=== PATIENT | male | born 1960 | race Caucasian/White ===

== ENCOUNTER 2025-05-23 14:59 | Inpatient (IN) | payer OTHER, MEDICARE ==
[2025-05-23] VITALS (7 sets, daily range): BP systolic 124–167; BP diastolic 47–58; PULSE 59–76; RESP 14–22; TEMP 98.3–98.8; O2SAT 98–100
[~2025-05-23] VITALS: Ht 180.3 cm; Wt 85.6 kg
[~2025-05-23 14:59] MED LIST: ASPI-1071 PO; ATOR20TA66 PO; CLOP75TA34 PO; FOLI1TAB27 PO; LISI10TA27 PO; NO HOME MEDS; NOR5T PO; THIA50TA10 PO
--- NOTE | 2025-05-23 15:32 | Physician Documentation ---
History of Present Illness General Chief Complaint: Abnormal Lab(s) Stated Complaint: ABNORMAL LABS Time Seen by MD: 15:32 OK to notify your PCP?: No Primary Medical Doctor: none Source: patient, family, RN notes reviewed Mode of Arrival: POV Exam Limitations: no limitations History of Present Illness Initial Comments 65-year-old male, with history of atrial fibrillation on Plavix, cardioembolic stroke, cardiomyopathy, coronary artery disease, and high cholesterol, sent to the ED by the [place] [facility] due to concerns of a hemoglobin of 6.2, base off of labs drawn today at 1213. Patient denies known history of anemia, but has been increasingly short of breath recently. He also describes some dark colored stools over the last couple of months. Medication Reconciliation Allergies: Coded Allergies: No Known Allergies (Unverified , 07/12/23) Scheduled Amiodarone HCl (Pacerone), 1 TAB PO DAILY, (Reported) Atorvastatin Calcium (Atorvastatin Calcium), 20 MG PO DAILY Cadexomer Iodine (Iodosorb), 1 APPLIC TOP DAILY, (Reported) Colchicine (Colchicine), 1 CAP PO DAILY, (Reported) Docusate Sodium (Docusate Sodium), 1 CAP PO Q12H, (Reported) Duloxetine HCl (Duloxetine HCl), 1 CAP PO DAILY, (Reported) Folic Acid* (Folic Acid*), 1 MG PO DAILY Folic Acid* (Folic Acid*), 1 TAB PO DAILY, (Reported) Gabapentin (Gabapentin), 1 CAP PO Q8H, (Reported) Hydroxyzine Hcl* (Atarax*), 1 TAB PO Q12H, (Reported) Lisinopril (Lisinopril), 10 MG PO DAILY Metoprolol/Hydrochlorothiazide 100/50 MG* (Lopressor Hct 100/50 MG*), 1 TAB PO DAILY, (Reported) Tamsulosin Hcl* (Flomax*), 1 CAP PO DAILY, (Reported) Scheduled PRN Albuterol Sulfate Nebs* (Proventil Nebs*), 2.5 MG IH Q4H PRN for SOB or wheezing, (Reported) Miscellaneous Medications Home Med List (No Home Medications), (Reported) Naloxone HCl (Naloxone HCl), (Reported) Thiamine Mononitrate (Vitamin B-1), 100 MG PO, (Reported) Discontinued Medications Amlodipine Besylate (Amlodipine Besylate), 5 MG PO DAILY Discontinued Reason: patient no longer taking Aspirin (Ecotrin*), 1 TAB PO DAILY Discontinued Reason: patient no longer taking Clopidogrel Bisulfate (Clopidogrel), 75 MG PO DAILY Discontinued Reason: patient no longer taking Thiamine HCl (Vitamin B-1), 2 TAB PO DAILY Discontinued Reason: patient no longer taking Past Medical History Past Medical History: CVA/TIA/Stroke, Atrial Fibrillation, Coronary Artery Disease, High Cholesterol, COPD, *MUSCULOSKELETAL*, MRSA Abscess Past Surgical History: orthopedic surgeries Drug Use: none Lives In: Home Review of Systems All Other Systems at this time: Reviewed and Negative ROS Shortness of breath as well as other positive symptoms as stated above in the HPI, otherwise all systems are reviewed and negative. Physical Exam Physical Exam Vital Signs: RN Vital Signs have been reviewed: Yes, Temperature: 97.6, Source: Oral, Heart Rate: 66, Respiratory Rate: 24, BP: 124/48, Pulse Oximetry: 100, Weight: 85.600 Oxygen Flow Rate: 0 Pulse Oximetry Reflects: adequate oxygenation Physical Exam VITALS: Reviewed and as above. GENERAL: Alert, mild distress. HEENT: Normocephalic, atraumatic, PERRL, EOMI, dry mucosa RESPIRATORY: He has wheezing bilaterally. Mild respiratory distress. No tachypnea. CHEST: No accessory muscle use, no retractions CV: Regular rate, rhythm, no edema, no murmur, No: JVD GI: Soft, non-tender, bowels sounds present, no rebound, guarding, or rigidity Rectal: Normal rectal tone. No stool in the vault, mucus was guaiac negative. MUSCULOSKELETAL: No deformities, no edema SKIN: Right anterior castrejon ulcer measuring 10 cm x 3.5 cm, no surrounding erythema. Warm and dry, no rash NEURO: Oriented x4, No motor or sensory deficit PSYCH: Normal mood and affect, no agitation Progress Progress Note 1707: Hospitalist paged. [id number]: Admission orders placed by Dr. Oliver, internal medicine resident. Results/Orders Reviewed/noted all lab results: Yes Results/Orders Orders - LEIF ORR MD Type And Screen (05/23/25 15:34) Transfusion Informed Consent (05/23/25 15:34) Svn Treatment (05/23/25 ) Lrpc - No Active Bleeding (05/23/25 16:21) Chest,Single View (05/23/25 16:57) Page Hospitalist (05/23/25 17:07) Fill Out Med Reconciliation (05/23/25 17:07) Lrpc - Active Bleeding (05/23/25 15:37) Completed Orders - OHLLEIF BRAND MD Cbc/Diff (05/23/25 15:21) BMP (05/23/25 15:21) Lipase (05/23/25 15:21) CMP (05/23/25 15:21) Hs Troponin I W Calculations (05/23/25 15:54) PBNP (05/23/25 15:54) Stat Ekg (05/23/25 ) Ipratropium/Albuterol Nebule (Ipratrop/A (05/23/25 16:10) Transfusion Informed Consent (05/23/25 16:21) Pathology Review (05/23/25 15:37) Chest,Single View (05/23/25 16:57) Hgb A1c (05/23/25 15:37) Man Diff (05/23/25 15:37) Vital Signs 05/23/25 05/23/25 05/23/25 05/23/25 15:16 15:48 16:15 16:34 Temp 97.6 Pulse 66 59 59 Resp 24 18 16 B/P (MAP) 124/48 128/67 (87) Pulse Ox 100 100 100 O2 Delivery Room Air* O2 Flow Rate 0 0 0 FiO2 21 05/23/25 05/23/25 16:34 17:15 Pulse 61 120 Resp 16 18 B/P (MAP) 128/90 (103) Pulse Ox 100 98 O2 Delivery Room Air* O2 Flow Rate 0 0 FiO2 21 Laboratory Tests Test 05/23/25 15:37 White Blood Count 7.2 Red Blood Count 3.03 L Hemoglobin 5.9 *L Hematocrit 19.8 *L Mean Corpuscular Volume 65.4 L Mean Corpuscular Hemoglobin 19.3 L Mean Corpuscular Hemoglobin Concent 29.5 L Red Cell Distribution Width 21.0 H Platelet Count 248 Mean Platelet Volume 8.4 Neutrophils (%) (Auto) 65.5 Lymphocytes (%) (Auto) 20.3 L Monocytes (%) (Auto) 8.8 Eosinophils (%) (Auto) 4.8 Basophils (%) (Auto) 0.6 Neutrophils # (Auto) 4.7 Lymphocytes # (Auto) 1.5 Monocytes # (Auto) 0.6 Eosinophils # (Auto) 0.3 Basophils # (Auto) 0.0 CBC Comment Differential Total Cells Counted 100 Neutrophils % (Manual) 72.0 Lymphocytes % (Manual) 13.0 L Monocytes % (Manual) 8.0 Eosinophils % (Manual) 7.0 H Platelet Estimate Normal Red Blood Cell Morphology Perf Polychromasia Few Hypochromasia 1+ Basophilic Stippling Anisocytosis 3+ Microcytosis 2+ Hematology Pathologist Comment See note Sodium Level 139 Potassium Level 4.3 Chloride Level 104 Carbon Dioxide Level 28.6 Anion Gap 6 L Blood Urea Nitrogen 13 Creatinine 1.56 H Estimated GFR/1.73 m2 45 BUN/Creatinine Ratio 8.3 L Glucose Level 107 H Hemoglobin A1c 5.7 Lactic Acid Level 1.5 Calcium Level 8.0 L Total Bilirubin 0.4 Aspartate Amino Transf (AST/SGOT) 12 Alanine Aminotransferase (ALT/SGPT) 11 L Alkaline Phosphatase 84 Troponin I High Sensitivity 14 Pro-B-Type Natriuretic Peptide 732 H Total Protein 7.0 Albumin 3.2 L Globulin 3.8 Albumin/Globulin Ratio 0.8 L Lipase 40 Chemistry Comments EKG/XRAY/CT/US/VASC/MRI Chest X-Ray : Additional Comments EXAM: DI CHEST,SINGLE VIEW HISTORY: sob COMPARISON: DI CHEST,SINGLE VIEW on DOS: 07/12/23 TECHNIQUE: Portable upright AP view of the chest was performed. FINDINGS: No pneumothorax, consolidative infiltrates, or pulmonary edema. The heart is enlarged. There are postoperative changes of median sternotomy, new compared wit h prior chest x-ray. IMPRESSION: 1. No acute intrathoracic process. 2. Cardiomegaly and postoperative changes of the heart. Reviewed by myself. Medical Decision Making Additional information obtaine: old records Findings The patient is a 65-year-old male with known renal failure who presents with symptomatic anemia patient was sent in for evaluation of his iron deficiency the patient was found to be significant and a we anemic, his prior hospitalizations has been reviewed. The patient's case was discussed with the nephrology doctor. As well as the hospitalist. The patient will be admitted to the hospitalist. The patient is a labs were reviewed previous hospitalizations were reviewed the patient has been typed and crossed for potential transfusion the patient's iron studies has been ordered. There was no current evidence of cardiac ischemia the patient has remained hemodynamically stable. The patient's cardiac cath tech was interpreted as a sinus rhythm and the patient's pulse oximetry was interpreted as normal and adequate. Differential Diagnosis Iron deficiency anemia anemia of chronic disease Departure Time of Disposition: 17:07 Disposition: ADMITTED INPATIENT Admitted to Inpatient Unit: yes, to hospitalist Impression: Primary Impression: Symptomatic anemia Additional Impression: COPD exacerbation Condition: Guarded Signature Scribe Signature: Scribed for Leif Orr MD by Landon Calhoun . 05/23/25 15:49 Attestation: The note accurately reflects work and decisions made by me.Leif Orr MD 15:50 LEIF ORR MD May 23, 2025 15:32 LANDON HANLEY May 23, 2025 15:55
[2025-05-23 15:51] LABS: MEAN PLATELET VOLUME 8.4 FL (7.4-10.4); RED CELL DISTRIBUTION WIDTH 21.0 % (11.5-14.5)
[2025-05-23 15:59] LABS: CREATININE 1.56 MG/DL (0.60-1.10); TOTAL CARBON DIOXIDE 28.6 MMOL/L (24-32); eCRCL 49 ML/MIN; eGFR 45 ML/MIN
--- NOTE | 2025-05-23 16:20 | ELECTROCARDIOGRAPH REPORT ---
[facility] Test Date: 2025-05-23 Test Time: 16:16:44 Pat Name: DIEGO TOTH Department: [facility]- Patient ID: [facility]-[id number] Room: ORTHO [facility] Gender: M Sr. Payroll Processor: : 1960 Requested By: LEIF SALAZAR Order Number: [id number] Reading MD: Dr. Walt Saldivar Measurements Intervals [place] Rate: 60 P: 72 [place]: 188 QRS: 99 QRSD: 156 T: -57 QT: 504 QTc: 504 Interpretive Statements Sinus rhythm Nonspecific intraventricular conduction delay Repol abnrm suggests ischemia, diffuse leads Baseline wander in lead(s) III,aVL,V3 Electronically Signed On 05-27-2025 7:42:[address] Walt Saldivar Please click the below link to view image of tracing.
[2025-05-23] MEDS: ipratropium/albuterol 3ml nebule NEB ONE (16:34)
[2025-05-23 16:44] LABS: PLATELET ESTIMATE NORMAL
--- NOTE | 2025-05-23 17:08 | RADIOLOGY REPORT ---
EXAM: DI CHEST,SINGLE VIEW HISTORY: sob COMPARISON: DI CHEST,SINGLE VIEW on DOS: 07/12/23 TECHNIQUE: Portable upright AP view of the chest was performed. FINDINGS: No pneumothorax, consolidative infiltrates, or pulmonary edema. The heart is enlarged. There are postoperative changes of median sternotomy, new compared with prior chest x-ray. IMPRESSION: 1. No acute intrathoracic process. 2. Cardiomegaly and postoperative changes of the heart.
[2025-05-23] MEDS ORDERED: magnesium sulf-water 4G/100mL 100 ML IV PRN (18:10)
[2025-05-23] MEDS ORDERED: potassium Cl 40MEQ/1/2NS 520ml 520 ML IV PRN (18:10)
[2025-05-23] MEDS ORDERED: mag hydrox/Alum hydrox/simeth 30ml oral suspension PO PRN (18:10)
[2025-05-23] MEDS ORDERED: magnesium hydroxide 30ml (MOM) UD suspension PO PRN (18:10)
[2025-05-23] MEDS ORDERED: magnesium Cl slow-release 64mg tablet PO PRN (18:10)
[2025-05-23] MEDS ORDERED: magnesium sulf-water 2g/50mL 50 ML IV PRN (18:10)
[2025-05-23] MEDS ORDERED: potassium Cl 20 mEq SR tablet PO PRN ×2 (18:10)
[2025-05-23] MEDS ORDERED: ondansetron/PF 4mg/2ml inj IV PRN (18:10)
[2025-05-23] MEDS: PERFLUTREN PROTEIN-A MICROSPHR (Optison) 0.22 MG/ML 3ML VIAL IV ONE (18:22)
[2025-05-23] MEDS: dexamethasone sod phosphate 10mg/ml inj IV STA (18:23)
[2025-05-23] MEDS: normal saline 1000ml 1,000 ML IV SCH (18:24)
--- NOTE | 2025-05-23 19:04 | HISTORY AND PHYSICAL-Residence ---
History & Physical Providers to CC Resident Creating Document: JEANNETTE LEMONS RES ~ History of Present Illness Primary Medical Doctor: none Reason for Admit\Complaint: Shortness of breath, tiredness History of Present Illness This is a 65-year-old male patient with past medical history of CAD, stroke, CABG, alcohol/tobacco use disorder, hypertension, hyperlipidemia, who was transferred from the [place] [facility] due to low hemoglobin. Patient complains of progressive weakness, tiredness and shortness of breath with exertion for the past 2-3 months. He also complains of occasional black stools but denies hematochezia, hematemesis, dyschezia, fecal urgency, abdominal pain, diarrhea, nausea, vomiting or weight loss. Patient takes aspirin but denies taking any NSAIDs recently. Patient does not have chest pain, fever, nocturnal sweating or productive cough. Allergies: Coded Allergies: No Known Allergies (Unverified , 07/12/23) Home Medications Home Medications Active Vitamin B-1 (Thiamine HCl) 50 Mg Tablet 2 Tab PO DAILY 30 Days Folic Acid* (Folic Acid) Y Tab 1 Mg PO DAILY 30 Days Ecotrin* (Aspirin) 81 Mg Tablet.dr 1 Tab PO DAILY 30 Days Lisinopril 10 Mg Tablet 10 Mg PO DAILY 30 Days Amlodipine Besylate 5 Mg Tablet 5 Mg PO DAILY 30 Days Atorvastatin Calcium 20 Mg Tablet 20 Mg PO DAILY 30 Days Clopidogrel (Clopidogrel Bisulfate) 75 Mg Tablet 75 Mg PO DAILY 21 Days Do not stop medication unless instructed by prescriber. Reported No Home Medications (Home Med List) Each Past Medical History Past Medical History CAD s/p CABG in Aug 2023 due to [place] Stroke in Jul 2023 - right eye sequela COPD Alcohol use disorder Hypertension Hyperlipidemia Past Surgical History Surgical History Comment CABG in Aug 2023 due to [place] Right knee and ankle surgery Family History Family History: Patient reports no known family medical history. Past Social History Smoking: Less than 1 pack/day (Patient is smoking 1-2 cigarettes daily, but used to smoke one pack a day) Alcohol Use: Other (Patient used to drink huge amounts of alcohol, but recently is taking Alcohol in binge once a week) Drug Use: Marijuana Lives with: Alone (Patient lives alone in his trailer. His mother lives nearby.) Lives In: Home Occupation: retired ROS All Other Systems: Reviewed and Negative Constitutional: Reports: malaise, weakness Eyes: Reports: blurred vision (Sequela of stroke) ENT: Reports: no symptoms reported Respiratory: Reports: SOB with exertion Cardiovascular: Reports: no symptoms reported Gastrointestinal: Reports: abdomen distended, melena Genitourinary: Reports: no symptoms reported Male Genitalia: Reports: no symptoms reported Neurological: Reports: no symptoms reported Musculoskeletal: Reports: no symptoms reported Integumentary: Reports: no symptoms reported Allergic/Immunologic: Reports: no symptoms reported Endocrine: Reports: no symptoms reported Psychiatric: Reports: no symptoms reported Exam Vitals: Vital Signs Date Time Temp Pulse Resp B/P (MAP) Pulse Ox O2 Delivery O2 Flow Rate FiO2 05/23/25 18:15 69 18 133/72 (92) 98 0 05/23/25 16:34 Room Air* 21 05/23/25 15:16 97.6 General: Awake , alert, and oriented x4 HEENT: Atraumatic, normocephalic, EOMI, anicteric sclera ; pale conjunctiva; dry mucous membranes Neck: Trachea midline. Supple, full range of motion, no JVD Cardiac: Regular rhythm, regular rate with no murmurs all over the precordium. Respiratory: Diminished breath sounds bilaterally with expiration wheezing without tachypnea, rub or rales, Chest wall is symmetric and without deformity. Gastrointestinal: Abdomen symmetric, non-distended, soft, non-tender, normal bowel sounds x4 quadrant, normoactive, no hepatosplenomegaly Musculoskeletal: No pedal edema Neurological: Mental status exam: alert and consciousness, orientation, memory, speech - Cranial nerve test: Cranial nerves 2-12 intact - Motor system: Normal Nutrition, normal tone, Power 5/5, no involuntary movements - Sensory system: Intact - Reflex testing: Biceps, triceps and knee reflexes 2+ - Cerebellar: Normal Skin: Warm and dry. There is a chronic ulcer of 4x3cm the anterior left ankle with clear borders and no purulent discharge. Diagnostic Data Last Recorded Lab Results: 05/23/25 1537 05/23/25 1537 Counseling Services Smoking & Tobacco Cessation: 3-10 Minutes Advance Care Planning Advanced Care plannin - 30 Minutes (The advanced care directives were discussed, and the patient has requested a full code status.) Additional Plan Assessment This is a 65-year-old male patient who was transferred from the [place] [facility] due to low hemoglobin. 1. Acute microcytic hypochromic anemia Differentials include: GI bleed, cancer, anemia of chronic disease Patient complains of occasional black stools but denies hematochezia, dyschezia or fecal urgency. No weight loss reported. Patient reports progressive shortness of breath with exertion, tiredness and weakness for the past 1-2 months He is on chronically aspirin, denies NSAIDs Hb 5.9, MCV 65.4, MCHC 29.5, RDW 21 Plan Ordered 1 unit of blood in the ER Ordered abdomen pelvis CTA Ordered iron panel, TSH, B12, LDH, haptoglobin Started on pantoprazole 40 mg IV b.i.d. NPO for now GI consulted, pending recommendations 2. COPD exacerbation Patient complains of shortness of breaths with exertion Wheezing is appreciated on physical examination No productive cough or fever CXR: No acute intrathoracic process. Cardiomegaly and postoperative changes of the heart. Plan Azithromycin 500 mg daily Albuterol/ipratropium q.4 h Solu-Medrol 40 mg q.6 h Incentive spirometry 3. Acute kidney injury most likely from vasomotor nephropathy Cr 1.56, BUN 8.3, Baseline Cr 1.21 Started on NS 100 mL/hr Ordered urine lytes Ordered urinalysis with microscopy Other comorbidities CAD s/p CABG in Aug 2023 due to [place]: Hold aspirin. BNP 732. Ordered echocardiogram. Pending med reconciliation Stroke in Jul 2023 - right eye sequela Alcohol use disorder: Last drink five days ago. He does not drink daily but drinks in binge every 1-2 weeks. Liver enzymes are normal. Hypertension, well-controlled: BP 128/90. Pending med reconciliation. Hyperlipidemia: Ordered lipid lipid panel. Code Status: Full code DVT prophylaxis: SCD Analgesia/sedation: Morphine/[place] Line/tube: PIV GI prophylaxis: Pantoprazole Nutrition: NPO Physical therapy: Ordered Prognosis: Guarded Disposition: Admit to ortho floor with telemetry. Resident attestation The above note has been reviewed and supervised by a senior resident PGY2/PGY3 Patient was seen, examined and discussed with the attending physician Date of Service: May 23, 2025 Billing Provider: MARCELA HINSON MD, LUCAS, RES May 23, 2025 19:04
[2025-05-23 19:19] LABS: EOSINOPHILS % (MANUAL) 7.0 % (0-6); LYMPHOCYTES % (MANUAL) 13.0 % (21-51); MONOCYTES % (MANUAL) 8.0 % (2-12); NEUTROPHILS % (MANUAL) 72.0 % (42-75)
--- NOTE | 2025-05-23 19:23 | RADIOLOGY REPORT ---
EXAM: CT CTA ABDOMEN PELVIS HISTORY: Hb 5.9, history of GI bleed , abd pain COMPARISON: None TECHNIQUE: CT angiogram of the abdomen and pelvis. Unfortunately, no contrast is seen of the examination. Correlate for contrast extravasation of the time of injection. CT scans at this facility use dose modulation, iterative reconstruction, and/or weight based dosing when appropriate to reduce radiation dose to as low as reasonably achievable. 100 mL of low osmolar contrast was administered without adverse effect. 3-D postprocessing was performed on a separate workstation under radiologist supervision. MIPs were created. VASCULAR FINDINGS: Normal caliber of abdominal aorta without evidence of aortic dissection or aneurysm. The mesenteric, and bilateral renal, iliac and femoral arteries are widely patent without any focal stenosis or aneurysm NON-VASCULAR FINDINGS: [LUNG BASES]: Minimal right lower lobe peribronchial thickening. No endobronchial impaction. The cardiac size is normal without pericardial effusion. [LIVER]: Normal hepatic size without suspicious focal lesion. [GALLBLADDER AND BILIARY TREE]: No cholelithiasis. No biliary dilatation. [SPLEEN]: Unremarkable. [PANCREAS]: Unremarkable. [ADRENAL GLANDS]: Unremarkable [KIDNEYS]: No hydronephrosis. No nephroureterolithiasis. No suspicious focal lesion. [BLADDER]: Bladder distention with bladder wall thickening and trabeculation. [PELVIC ORGANS]: Unremarkable. [BOWEL/MESENTERY]: Stomach is normal. No CT evidence of bowel obstruction. Appendix is normal. There is no free air. Sigmoid diverticulosis. [ASCITES]: Absent [LYMPHADENOPATHY]: Mildly prominent [id number]-left inguinal lymph nodes with the largest measuring up to 1.2 cm short axis in the right, reactive versus neoplastic. [ABDOMINAL WALL]: Fat containing left inguinal hernia [MUSCULOSKELETAL]: No acute fracture or aggressive focal osseous lesion. Multifocal degenerative change of the visualized spine. IMPRESSION: 1. Limited evaluation for gastrointestinal bleeding secondary to lack of intravenous contrast correlate for contrast extravasation of the time of injection. 2. No visualized hemoperitoneum. 3. Significant bladder distention with underlying trabeculation correlate for urinary retention and subsequent cystitis. 4. Mild stool burden. 5. Fat containing left inguinal hernia
[2025-05-23 19:52] LABS: % IRON SATURATION 2 % (11-46)
[2025-05-23] MEDS: docusate sod 100mg capsule PO SCH (20:00)
[2025-05-23] MEDS: K and/or MAG REPLACEMENT MC SCH (20:00)
[2025-05-23 20:05] LABS: CHOL/HDL RATIO 2.2 (0.00-4.99); LACTATE DEHYDROGENASE 129 U/L (85-227); LDL CHOLESTEROL 42 MG/DL (50-100)
[2025-05-23] MEDS ORDERED: DULO20CA18 PO (20:05)
[2025-05-23] MEDS ORDERED: FOLI0.4T6 PO (20:05)
[2025-05-23] MEDS ORDERED: ALB0.5UD IH (20:05)
[2025-05-23] MEDS ORDERED: CADE40GE2 TOP (20:05)
[2025-05-23] MEDS ORDERED: GABA-530 PO (20:05)
[2025-05-23] MEDS ORDERED: AMIO200T10 PO (20:05)
[2025-05-23] MEDS ORDERED: COLC0.6C3 PO (20:05)
[2025-05-23] MEDS ORDERED: DOCU100C40 PO (20:05)
[2025-05-23 20:54] LABS: CREATININE,URINE RANDOM 64.0 MG/DL
[2025-05-23] MEDS ORDERED: HYDR-3686 PO (21:12)
[2025-05-23] MEDS ORDERED: METO1TAB12 PO (21:12)
[2025-05-23] MEDS ORDERED: NALO4SPR22 (21:12)
[2025-05-23] MEDS ORDERED: TAMS-55 PO (21:12)
[2025-05-23] MEDS ORDERED: THIA100T70 PO (21:12)
[2025-05-23 21:13] LABS: OSMOLALITY UA 292.0 MOSM/K (50-1400)
[2025-05-23 21:23] LABS: URINE AMPHETAMINE SCREEN NEGATIVE (Neg); URINE BARBITUATE SCREEN NEGATIVE (Neg); URINE BENZODIAZEPINES SCREEN NEGATIVE (Neg); URINE CANNABINOID SCREEN NEGATIVE (Neg); URINE COCAINE SCREEN NEGATIVE (Neg); URINE METHADONE SCREEN NEGATIVE (Neg); URINE OPIATE SCREEN NEGATIVE (Neg); URINE PHENCYCLIDINE SCREEN NEGATIVE (Neg)
[2025-05-23] MEDS: methylPREDNISolone sod succ/PF 40mg inj. IV SCH (21:23)
[2025-05-23 21:46] LABS: LEUKOCYTE ESTERASE ,URINE LARGE (Neg); NITRITES, URINE POSITIVE (Neg); OCCULT BLOOD,URINE NEGATIVE (Neg)
[2025-05-23 21:49] LABS: UA COLLECTION TYPE NON-SPECIFIED
[2025-05-23 22:02] LABS: SQUAMOUS EPITHELIAL CELL,UR NONE SEEN /LPF (FEW)
[2025-05-23 22:03] LABS: WBC CLUMPS,URINE MODERATE /HPF (NEGATIVE)
[2025-05-23 22:55] LABS: UA EOSINOPHILS RARE EOS /HPF
[2025-05-24] VITALS (28 sets, daily range): BP systolic 102–137; BP diastolic 35–72; PULSE 55–101; RESP 13–22; TEMP 97.7–98.9; O2SAT 94–99
[2025-05-24 00:26] LABS: MEAN PLATELET VOLUME 8.5 FL (7.4-10.4); RED CELL DISTRIBUTION WIDTH 24.0 % (11.5-14.5)
[2025-05-24] MEDS: ipratropium/albuterol 3ml nebule NEB PRN (00:26)
[2025-05-24] MEDS: HYDROcodone/acetaminophen 5mg/325mg tablet PO PRN (00:58)
[2025-05-24 06:05] LABS: MEAN PLATELET VOLUME 8.8 FL (7.4-10.4); RED CELL DISTRIBUTION WIDTH 24.4 % (11.5-14.5)
[2025-05-24 06:16] LABS: CREATININE 1.51 MG/DL (0.60-1.10); TOTAL CARBON DIOXIDE 24.7 MMOL/L (24-32); eCRCL 51 ML/MIN; eGFR 46 ML/MIN
--- NOTE | 2025-05-24 08:30 | CONSULTATION REPORT - RESIDENT ---
Consult Providers to CC Resident Creating Document: YANIRA WALKER RES History of Present Illness Reason for Admit\\Complaint: Fatigue History of Present Illness The patient is a 65-year-old male with PMH significant for CAD S/P CABG x2 (August 2023), ischemic stroke (07/27) with residual right eye blindness, and right-sided hearing impairment. He was transferred from the [facility] for evaluation of severe anemia. The patient reports progressive fatigue, exertional dyspnea, and decreased stamina over the past 2-3 months. He also notes occasional "dark stool", but denies hematochezia, hematemesis, abdominal pain, N/V, diarrhea, constipation, or unintentional weight loss. There is no history of NSAID use or known prior GI bleeding. He has been taking aspirin and Plavix continuously for the past year following his CABG. Lab evaluation revealed hemoglobin 5.9, MCV 65, and MCH 19.3, consistent with microcytic anemia. Iron studies demonstrated ferritin 6.0, serum iron 3.0, TIBC 424, and transferrin saturation 2%, confirming severe iron-deficiency anemia, most consistent with chronic gastrointestinal blood loss. He received 1 unit of PRBC with a post transfusion hemoglobin of 7.0. He underwent a colonoscopy approximately 10 years ago, reportedly unremarkable and has never had an upper endoscopy. Family history is significant for colon cancer in his brother, diagnosed last year at age 57 (treated with surgery and chemotherapy) and colon cancer in his maternal grandmother. Allergies: Coded Allergies: No Known Allergies (Unverified , 07/12/23) Home Medications Home Medications Active Folic Acid* (Folic Acid) Y Tab 1 Mg PO DAILY 30 Days Lisinopril 10 Mg Tablet 10 Mg PO DAILY 30 Days Atorvastatin Calcium 20 Mg Tablet 20 Mg PO DAILY 30 Days Reported Vitamin B-1 (Thiamine Mononitrate) 100 Mg Tablet 100 Mg PO Flomax* (Tamsulosin HCl) 0.4 Mg Cap.sr.24h 1 Cap PO DAILY 30 Days Naloxone HCl 4 Mg/Actuation [place] Lopressor Hct 100/50 MG* (Metoprolol/Hydrochlorothiazide 100/50 MG*) 100 Mg/50 Mg Tablet 1 Tab PO DAILY Atarax* (Hydroxyzine HCl) 25 Mg Tablet 1 Tab PO Q12H 30 Days Gabapentin 100 Mg Capsule 1 Cap PO Q8H 30 Days Folic Acid* (Folic Acid) 0.4 Mg Tablet 1 Tab PO DAILY 30 Days Duloxetine HCl 20 Mg Capsule.dr 1 Cap PO DAILY 30 Days Docusate Sodium 100 Mg Caps 1 Cap PO Q12H 7 Days Colchicine 0.6 Mg Capsule 1 Cap PO DAILY 30 Days Iodosorb (Cadexomer Iodine) 0.9 % Gel..gm. 1 Applic TOP DAILY 30 Days Pacerone (Amiodarone HCl) 200 Mg Tablet 1 Tab PO DAILY 30 Days Proventil Nebs* (Albuterol) 2.5 Mg/0.5 Ml Vial.neb 2.5 Mg IH Q4H PRN No Home Medications (Home Med List) Each Past Medical History Past Medical History CAD s/p CABG in Aug 2023 due to [place], Stroke in Jul 2023 - right eye sequela, COPD, Alcohol use disorder Hypertension, Hyperlipidemia Past Surgical History Surgical History Comment CABG in Aug 2023 due to [place], Right knee and ankle surgery Family History Family History: Patient reports no known family medical history. Past Social History Social History Comment Lives in his trailer, her mother close by. His daughter comes by weekly and manage her medications. Less than 1 pack/day (Patient is smoking 1-2 cigarettes daily, but used to smoke one pack a day). Smokes marijuana for sleep. Consumes alcohol occasionally. Exam Vitals: Vital Signs Date Time Temp Pulse Resp B/P (MAP) Pulse Ox O2 Delivery O2 Flow Rate FiO2 05/24/25 06:00 77 05/24/25 04:14 Room Air 05/24/25 02:07 16 05/24/25 00:36 0.0 05/24/25 00:26 97 21 05/23/25 22:00 98.3 142/55 (84) General: Awake and Alert, no acute distress. HEENT: Conjunctiva pink, Sclera clear, Mucus Membranes moist. Neck: Supple without masses and tenderness. Resp: Diffuse bilateral expiratory wheezing Heart: Regular Rate and rhythm, normal S1 and S2 without murmur, rub or gallop. Abdomen: Soft and non tender no organomegaly Extremities: More than 2 cm longitudinal open/nonhealing wound on right lower extremity just above the ankle Skin: Warm and Dry. Diagnostic Data Last Recorded Lab Results: 05/24/25 0530 05/24/25 0530 Additional Plan Assessment and plan 1. Severe iron-deficiency anemia (microcytic, hypochromic) In an elderly man with such severe and impressive iron deficiency anemia, GI tract malignancies and GI tract vascular lesions are to be ruled out as the 1st diagnoses. Patient does have a risk factor for colon cancer with first-degree relative at a younger age with colon cancer. Patient had a colonoscopy about 10 years ago. The GI blood loss could have been aggravated by dual antiplatelet agent therapy with aspirin and Plavix. Other etiologies including chronic peptic peptic ulcer disease is a possibility. Reports occasional melena, no hematemesis or hematochezia No prior EGD, and last colonoscopy was 10 years ago (reportedly normal) Plan: Bidirectional endoscopic workup including EGD and colonoscopy. Agree with current management including monitoring of hemoglobin and hematocrit and transfusing to maintain hemoglobin around 7 g. Avoid NSAIDs, hold Plavix temporarily if Cardiology agrees, until source of bleeding is identified He is NPO Protonix 40 mg IV twice daily Scheduled for EGD, he will undergo today in a.m. discussed the procedure with the patient, he understands the risks, benefits and alternatives associated with the procedure. EGD will be performed 1st, followed by colonoscopy to evaluate for potential upper and lower GI source of blood loss. 2. COPD exacerbation Diffuse expiratory wheezing on exam Continue treatment per primary team 3. Acute kidney injury, likely prerenal Likely secondary to volume depletion from chronic blood loss and anemia Continue treatment per primary team 4. Chronic medical condition CAD, status post CABG x 2 (2023) Hypertension Hyperlipidemia Continue treatment per primary team Code status: Full code Yanira Walker Internal Medicine Resident, PGY-3 Date of Service: May 24, 2025 Billing Provider: JUAN PABLO ALMANZA MD, SHAMS, ESVIN May 24, 2025 08:30 JUAN PABLO ALMANZA MD May 24, 2025 15:50
[2025-05-24] MEDS ORDERED: albuterol 2.5 MG/3 ML nebule NEB PRN (08:35)
[2025-05-24] MEDS: ipratropium/albuterol 3ml nebule NEB SCH ×2 (08:53→19:30)
[2025-05-24] MEDS ORDERED: morphine 4 MG/ML inj SYRINge IV PRN ×2 (12:04)
[2025-05-24] MEDS ORDERED: fentaNYL/PF 50MCG/1 ML 2ML syringe ONE (14:13)
[2025-05-24] MEDS ORDERED: MIDAZolam 1 MG/ML 5ML VIAL ONE (14:14)
[2025-05-24] MEDS: fentaNYL/PF 50MCG/1 ML 2ML syringe IV ONE (14:31)
[2025-05-24] MEDS: MIDAZolam 1 MG/ML 5ML VIAL IV ONE (14:31)
--- NOTE | 2025-05-24 15:59 | PROGRESS NOTE- Residence ---
Progress Note - Resident Providers to CC Resident Creating Document: JEANNETTE LEMONS RES ~ Antibiotic Timeout Antibiotic Ordered?: Yes Subjective Patient was seen and examined at the bedside. He reports improvement in tiredness and weakness; however, he still experiences shortness of breath and wheezing. He denies having chest pain or a productive cough. Objective Vital Signs Date Time Temp Pulse Resp B/P (MAP) Pulse Ox O2 Delivery O2 Flow Rate FiO2 05/24/25 15:20 77 16 130/61 (84) 96 Room Air 0.0 05/24/25 14:45 99.0 05/24/25 11:43 21 Result Diagram: 05/24/25 0530 05/24/25 0530 Awake , alert, and oriented x4 HEENT: Atraumatic, normocephalic, EOMI, anicteric sclera ; pale conjunctiva; dry mucous membranes Neck: Trachea midline. Supple, full range of motion, no JVD Cardiac: Regular rhythm, regular rate with no murmurs all over the precordium. Respiratory: Diminished breath sounds bilaterally with diffuse wheezing without tachypnea, rub or rales, Chest wall is symmetric and without deformity. Gastrointestinal: Abdomen symmetric, non-distended, soft, non-tender, normal bowel sounds x4 quadrant, normoactive, no hepatosplenomegaly Musculoskeletal: No pedal edema Neurological: Mental status exam: alert and consciousness, orientation, memory, speech - Cranial nerve test: Cranial nerves 2-12 intact - Motor system: Normal Nutrition, normal tone, Power 5/5, no involuntary movements - Sensory system: Intact - Reflex testing: Biceps, triceps and knee reflexes 2+ - Cerebellar: Normal Skin: Warm and dry. There is a chronic ulcer of 4x3cm the anterior left ankle with clear borders and no purulent discharge. Counseling Services Smoking & Tobacco Cessation: 3-10 Minutes Plan Plan Assessment This is a 65-year-old male patient who was transferred from the [place] [facility] due to low hemoglobin. 1. Severe microcytic hypochromic anemia due to iron deficiency Differentials include: Chronic GI bleed, cancer, poor oral intake Patient complains of occasional black stools but denies hematochezia, dyschezia or fecal urgency. No weight loss reported. Patient reports progressive shortness of breath with exertion, tiredness and weakness for the past 1-2 months He is on chronically aspirin, denies NSAIDs Hb 5.9, MCV 65.4, MCHC 29.5, RDW 21 Plan 05/23/25 Ordered 1 unit of blood in the ER Ordered abdomen pelvis CTA Ordered iron panel, TSH, B12, LDH, haptoglobin Started on pantoprazole 40 mg IV b.i.d. NPO for now GI consulted, pending recommendations 05/24/25 Hb 7.0 after 1st transfusion Ordered a new unit of blood Iron 10, ferritin 6, TIBC 424 EGD was done today, colonoscopy planned for tomorrow Started on iron IV CT abdomen: Limited evaluation for gastrointestinal bleeding secondary to lack of intravenous contrast correlate for contrast extravasation of the time of injection. 2. COPD exacerbation, clinically stable Patient complains of shortness of breaths with exertion Diffuse wheezing is appreciated on physical examination Breathing comfortably in room air No productive cough or fever CXR: No acute intrathoracic process. Cardiomegaly and postoperative changes of the heart. Plan Ceftriaxone + Azithromycin 500 mg daily Albuterol/ipratropium q.4 h PRN Solu-Medrol 40 mg q.6 h Incentive spirometry 05/24/25 Discharge patient on Symbicort Albuterol/ipratropium q.4 hours scheduled 3. Acute kidney injury most likely from mixed vasomotor nephropathy // post renal obstruction Cr 1.56, BUN 8.3, Baseline Cr 1.21 Patient reports self catheterization 3 times a day for years after bladder injury CT abdomen:Significant bladder distention with underlying trabeculation correlate for urinary retention and subsequent cystitis. Started on NS 100 mL/hr Ordered urine lytes Ordered urinalysis with microscopy 05/24/25 FENa 1.2%, indeterminate Cr 1.51, BUN/Cr 8.3 Continue IV fluids Ordered PSA Started on tamsulosin Continue intermittent catheterization 4. Acute urinary tract infection Complicated by chronic outlet obstruction Patient has increased urinary frequency but no dysuria or hematuria He noted recent foamy urine UA: Nitrite positive, leukocyte esterase positive, 5-10 WBCs WBC 7.9, lactic acid 1.5, procalcitonin < 0.05 No signs of sepsis Started on ceftriaxone daily Pending urine culture Other comorbidities CAD s/p CABG in Aug 2023 due to [place]: Hold aspirin in view of possible chronic GI bleed. HFpEF (NYHA Class 2, Stage C), not on acute exacerbation: Pending med reconciliation. BNP 732. Echocardiogram shows LVEF is 55-60%. RV is mildly dilated in size with normal function. RVSP is estimated at 52 mmHg. Left atrium is severely dilated. Stroke in Jul 2023 - right eye sequela Alcohol use disorder: Patient reports drinking in binge every 1-2 weeks, but keeps changing the history. Liver enzymes are normal. Hypertension, well-controlled: BP 130/61mmHg. Pending med reconciliation. Hyperlipidemia, well-controlled: Cholesterol 101, triglycerides 111, LDL 42, HDL 46. Continue atorvastatin. Code Status: Full code DVT prophylaxis: SCD Analgesia/sedation: Morphine/[place] Line/tube: PIV GI prophylaxis: Pantoprazole Nutrition: Clear liquids Physical therapy: Pending Prognosis: Guarded Disposition: Continue medical treatment. Resident MD attestation The above note has been reviewed and supervised by a senior resident PGY2/PGY3 Patient was seen, examined and discussed with the attending physician Date of Service: May 24, 2025 Billing Provider: MARCELA HINSON MD, LUCAS, RES May 24, 2025 15:59
[2025-05-24] MEDS: sodium ferric gluc complex inj 125 MG in normal saline 100ml IV soln 100 ML IV SCH (16:21)
[2025-05-24 16:44] LABS: MEAN PLATELET VOLUME 8.7 FL (7.4-10.4); RED CELL DISTRIBUTION WIDTH 26.2 % (11.5-14.5)
[2025-05-24 17:16] LABS: APTT 24 SECONDS (22-32); INR 1.1 INR
[2025-05-24] MEDS: PEG 3350/Na sulf,bicarb,Cl/KCl oral sol 4 liter bottle PO ONE (19:27)
[2025-05-24] MEDS: CefTRIAXone/D5W-Rocephin 1gm 50 ML IV SCH (23:11)
[2025-05-25] VITALS (27 sets, daily range): BP systolic 110–151; BP diastolic 39–87; PULSE 62–89; RESP 14–22; TEMP 97.3–99; O2SAT 93–99
[2025-05-25 04:10] LABS: MEAN PLATELET VOLUME 8.7 FL (7.4-10.4); RED CELL DISTRIBUTION WIDTH 26.2 % (11.5-14.5)
[2025-05-25 04:33] LABS: CREATININE 1.25 MG/DL (0.60-1.10); TOTAL CARBON DIOXIDE 26.6 MMOL/L (24-32); eCRCL 61 ML/MIN; eGFR 58 ML/MIN
[2025-05-25] MEDS ORDERED: COLCHICINE PO SCH (08:00)
[2025-05-25] MEDS ORDERED: propofol inj 20 ML IV ONE ×3 (09:12→09:37)
[2025-05-25 09:25] LABS: OCCULT BLOOD STOOL NEGATIVE (Neg)
[2025-05-25] MEDS: duloxetine 20mg capsule.DR PO SCH (10:35)
[2025-05-25 11:15] LABS: % FREE PSA 14.0 % (.); PROSTATE SPECIFIC AG, SERUM 0.5 ng/mL (0.0-4.0)
--- NOTE | 2025-05-25 14:00 | PROGRESS NOTE- Residence ---
Progress Note - Resident Providers to CC Resident Creating Document: JEANNETTE LEMONS RES ~ Antibiotic Timeout Antibiotic Ordered?: Yes Subjective Patient was seen and examined at the bedside. He is clinically stable, complains of shortness of breath and dry cough. He does not have hemoptysis, hematemesis or melena. He underwent EGD yesterday and colonoscopy today, no bleeding source was found. He is receiving the 3rd unit of blood. No other symptoms reported. Objective Vital Signs Date Time Temp Pulse Resp B/P (MAP) Pulse Ox O2 Delivery O2 Flow Rate FiO2 05/25/25 12:53 97.8 68 16 149/59 05/25/25 12:15 99 Room Air 05/25/25 09:48 5.0 05/25/25 07:39 21 Result Diagram: 05/25/25 0351 05/25/25 0351 Awake , alert, and oriented x4 HEENT: Atraumatic, normocephalic, EOMI, anicteric sclera ; pale conjunctiva; dry mucous membranes Neck: Trachea midline. Supple, full range of motion, no JVD Cardiac: Regular rhythm, regular rate with no murmurs all over the precordium. Respiratory: Diminished breath sounds bilaterally with diffuse wheezing without tachypnea, rub or rales, Chest wall is symmetric and without deformity. Gastrointestinal: Abdomen symmetric, distended, soft, non-tender, normal bowel sounds x4 quadrant, normoactive, no hepatosplenomegaly Musculoskeletal: No pedal edema Neurological: Mental status exam: alert and consciousness, orientation, memory, speech - Cranial nerve test: Cranial nerves 2-12 intact - Motor system: Normal Nutrition, normal tone, Power 5/5, no involuntary movements - Sensory system: Intact - Reflex testing: Biceps, triceps and knee reflexes 2+ - Cerebellar: Normal Skin: Warm and dry. There is a chronic ulcer of 4x3cm the anterior left ankle with clear borders and no purulent discharge. Coagulation Studies Laboratory Tests Test 05/24/25 16:01 Prothrombin Time 10.9 SECONDS (9.0-12.0) INR International Normalized Ratio 1.1 INR Activated Partial Thromboplast Time 24 SECONDS (22-32) Coagulation Comments Plan Plan Assessment This is a 65-year-old male patient who was transferred from the [place] [facility] due to low hemoglobin. 1. Severe microcytic hypochromic anemia due to iron deficiency Differentials include: Chronic GI bleed, cancer and poor oral intake Patient complains of occasional black stools but denies hematochezia, dyschezia or fecal urgency. No weight loss reported. Patient reports progressive shortness of breath with exertion, tiredness and weakness for the past 1-2 months He is on chronically aspirin, denies NSAIDs Hb 5.9, MCV 65.4, MCHC 29.5, RDW 21 Plan 05/23/25 Ordered 1 unit of blood in the ER Ordered abdomen pelvis CTA Ordered iron panel, TSH, B12, LDH, haptoglobin Started on pantoprazole 40 mg IV b.i.d. NPO for now GI consulted, pending recommendations 05/24/25 Hb 7.0 after 1st transfusion Ordered a new unit of blood Iron 10, ferritin 6, TIBC 424 EGD was done today, colonoscopy planned for tomorrow Started on iron IV CT abdomen: Limited evaluation for gastrointestinal bleeding secondary to lack of intravenous contrast correlate for contrast extravasation of the time of injection. 05/25/25 EGD and colonoscopy did not show any source of bleeding Patient required the 3rd blood transfusion today Patient is clinically stable with hemoglobin is dropping daily We will continue iron infusion Transfuse if hemoglobin is less than 7.0 Ordered bleeding scan Ordered CT chest with contrast given longstanding history of smoking, persistent wheezing and shortness of breath 2. COPD exacerbation, clinically stable Patient complains of shortness of breaths with exertion Diffuse wheezing is appreciated on physical examination Breathing comfortably in room air No productive cough or fever CXR: No acute intrathoracic process. Cardiomegaly and postoperative changes of the heart. Plan Ceftriaxone + Azithromycin 500 mg daily Albuterol/ipratropium q.4 h PRN Solu-Medrol 40 mg q.6 h Incentive spirometry 05/24/25 Discharge patient on Symbicort Albuterol/ipratropium q.4 hours scheduled 05/25/25 Continue incentive spirometry, steroid and DuoNebs Ceftriaxone + azithromycin day 3 3. Acute kidney injury most likely from mixed vasomotor nephropathy // post renal obstruction Cr 1.56, BUN 8.3, Baseline Cr 1.21 Patient reports self catheterization 3 times a day for years after bladder injury CT abdomen:Significant bladder distention with underlying trabeculation correlate for urinary retention and subsequent cystitis. Started on NS 100 mL/hr Ordered urine lytes Ordered urinalysis with microscopy 05/24/25 FENa 1.2%, indeterminate Cr 1.51, BUN/Cr 8.3 Continue IV fluids Ordered PSA Started on tamsulosin Continue intermittent catheterization 05/25/25 Cr 1.25, improving progressively Continue IV fluids given administration of IV contrast 4. Acute urinary tract infection Complicated by chronic outlet obstruction 05/24/25 Patient has increased urinary frequency but no dysuria or hematuria He noted recent foamy urine UA: Nitrite positive, leukocyte esterase positive, 5-10 WBCs WBC 7.9, lactic acid 1.5, procalcitonin < 0.05 No signs of sepsis Started on ceftriaxone daily Pending urine culture 05/25/25 Urinary symptoms are improving Continue intermittent catheterization Continue ceftriaxone Urine culture: Gram-positive cocci Adjust antibiotic according to culture Other comorbidities CAD s/p CABG in Aug 2023 due to [place]: Hold aspirin in view of possible chronic GI bleed. HFpEF (NYHA Class 2, Stage C), not on acute exacerbation: Pending med reconciliation. BNP 732. Echocardiogram shows LVEF is 55-60%. RV is mildly dilated in size with normal function. RVSP is estimated at 52 mmHg. Left atrium is severely dilated. Stroke in Jul 2023 - right eye sequela Alcohol use disorder: Patient reports drinking in binge every 1-2 weeks, but keeps changing the history. Liver enzymes are normal. Hypertension, well-controlled: BP 130/61mmHg. Pending med reconciliation. Hyperlipidemia, well-controlled: Cholesterol 101, triglycerides 111, LDL 42, HDL 46. Continue atorvastatin. Code Status: Full code DVT prophylaxis: SCD Analgesia/sedation: Morphine/[place] Line/tube: PIV GI prophylaxis: Pantoprazole Nutrition: Regular diet Physical therapy: Pending Prognosis: Guarded Disposition: Continue medical treatment. Resident MD attestation The above note has been reviewed and supervised by a senior resident PGY2/PGY3 Patient was seen, examined and discussed with the attending physician Date of Service: May 25, 2025 Billing Provider: MARCELA HINSON MD, LUCAS, RES May 25, 2025 14:00
[2025-05-25] MEDS: guaiFENesin/DM 10ml UD oral syrup PO PRN (14:04)
[2025-05-25 14:41] LABS: MEAN PLATELET VOLUME 9.1 FL (7.4-10.4); RED CELL DISTRIBUTION WIDTH 27.2 % (11.5-14.5)
[2025-05-25] MEDS: heparin sodium, porcine/PF 100unit/ml 5ML syringe IV ONE (14:56)
[2025-05-25 15:10] LABS: HAPTOGLOBIN 169.0 mg/dL (32-363)
[2025-05-25] MEDS ORDERED: iohexol 300mg/ml 100ml inj. ONE (15:57)
--- NOTE | 2025-05-25 16:26 | RADIOLOGY REPORT ---
EXAM: NM NM GI BLOOD LOSS SCAN DATE OF SERVICE: 05/25/2025 01:58 PM ORDERING PHYSICIAN: MARCELA HINSON RES REASON FOR EXAM: Concern for GI bleed TECHNIQUE: Planer images of the abdomen were acquired for 60 minutes. COMPARISON: None FINDINGS: There is physiologic distribution of radiotracer. There is no abnormal activity seen within the bowel to suggest active GI bleeding. IMPRESSION: No scintigraphic evidence of active GI bleeding. End of Report
--- NOTE | 2025-05-25 17:38 | RADIOLOGY REPORT ---
CLINICAL HISTORY: Diffuse wheezing, longstanding smoker, significant anemia, no GI bleed TECHNIQUE: Chest CT was performed with intravenous contrast. This exam was performed according to our departmental dose optimization program. Up-to-date CT equipment and radiation dose reduction techniques are utilized as appropriate. DLP: 18.4 mGy ; DLP: 725.68 mGy WID: COMPARISON: None FINDINGS: Lower Neck: Unremarkable Axilla, Mediastinum and [place]: Mild prominent mediastinal and hilar lymph nodes. Mildly prominent though predominantly normal-sized axillary lymph nodes. Heart and Great Vessels: Prior median sternotomy and CABG. Mild cardiomegaly without pericardial effusion. The thoracic aorta is normal in caliber with moderate mixed atherosclerotic plaque. Moderate mitral annular calcification. Moderate [place] 3-vessel coronary artery calcifications. Central pulmonary arteries are normal caliber. Airway, Lungs and Pleura: Trachea and central airways are patent. There are mild inspissated secretions in the trachea. There is mild bronchial wall thickening bilaterally. Mild centrilobular and paraseptal emphysema. Mild interlobular septal thickening in the lungs. Trace bilateral pleural effusions. No pneumothorax. No consolidative pneumonia. Upper Abdomen: Mild splenomegaly. No acute abnormality. There is gallbladder wall edema which is contracted. Chest Wall and Osseous Structures: Multilevel thoracic spondylosis. No destructive osseous lesion. Mild chest wall edema. IMPRESSION: 1. Mild volume overload and/or CHF with mild interstitial pulmonary edema, small bilateral pleural effusions, mild cardiomegaly, and chest wall edema. 2. Prior median sternotomy and CABG. 3. Mild centrilobular and paraseptal emphysema . 4. Mild splenomegaly.
--- NOTE | 2025-05-25 19:02 | CARDIOLOGY REPORT ---
APPROVED REPORT EXAM: Comprehensive 2D, Doppler, and color-flow Echocardiogram. Patient Location: 40[address] Blood Pressure: 127/54 mmHg Heart Rate: 74 bpm Rhythm: SINUS Indications CONGESTIVE HEART FAILURE ATRIAL FIBRILLATION CORONARY ARTERY DISEASE S/P CABG X2 2023 [facility] [employer] Sniper: Gian Godfrey MD ([place]) Previous echo: 07/13/23 [facility] (EF 45%, mild MS, MVA 2.50 cmsq, pk / mn grad 7 / 3 mmHg, pkV 2.5 m/s, mild MR, trace TR) 2D Dimensions RVDd 3.7 cm LA Diam 6.2 cm IVSd 1.6 (0.7-1.1cm) LVDd 3.7 cm PWd 1.5 (0.7-1.1cm) IVSs 1.8 (0.8-1.2cm) LVDs 2.6 (2.5-4.0cm) PWs 1.9 (0.8-1.2cm) LVOT Diameter 1.90 (1.8-2.4cm) LVEF(%) 56.3 (>50%) FS (%) 28.8 % SV 32.7 ml CO 2.6 L/min M-Mode Dimensions Left Atrium(MM) 5.45 (2.5-4.0cm) Aortic Root 3.57 (2.2-3.7cm) Aortic Cusp Exc 1.65 (1.5-2.0cm) Biplane 2D LA Volumes LA ESV Index 57.27 mL/m2 Aortic Valve AoV Peak Mike. 181.1 cm/s AoV VTI 38.7 cm AO Peak GR. 13.1 mmHg AO Mean GR. 7 mmHg LVOT VTI 27.98 cm LVOT Peak Mike. 127.7 cm/s FELY(VTI)/BSA 2.04 cm2/m2 FELY (VTI) 2.04 cm2 AV DI 0.72 % Mitral Valve MV Peak Gr. 30 mmHg MV Mean Gr. 14 mmHg MV PHT 116 ms MVA (PHT) 1.90 cm2 MV VMax 273.1 cm/s MV VMean 178.9 cm/s MVA VTI 1.19 cm2 MV VTI 66.6 cm Tricuspid Valve TR P. Velocity 325 cm/s RAP ESTIMATE 10 mmHg TR Peak Gr. 42 mmHg RVSP 52 mmHg LEFT VENTRICLE Normal LV size and function. Moderate concentric hypertrophy. Overall LVEF is about 60% RIGHT VENTRICLE RV is mildly dilated in size with normal function. RVSP is estimated at 52 mmHg. ATRIA Left atrium is severely dilated. AORTIC VALVE Trileaflet AV appears mildly sclerotic without stenosis or insufficiency. MITRAL VALVE Moderate MV annular and leaflet calcification with moderate stenosis. MVA: 1.90 cmsq; Pkv: 2.73 m/sec; Gradients: 30 / 14 mmHG. Trace regurgitation. TRICUSPID VALVE TV appears structurally normal with mild regurgitation. PULMONIC VALVE Normal PV without stenosis, physiologic insufficiency. GREAT VESSELS Aortic root is normal in size. The IVC is normal in size and collapses greater than 50% with inspiration. PERICARDIUM Normal pericardium. No effusion. Other Information Study Quality: Adequate Conclusion Overall LVEF is about 60% Normal LV size and function. Moderate concentric hypertrophy. RV is mildly dilated in size with normal function. RVSP is estimated at 52 mmHg. Trileaflet AV appears mildly sclerotic without stenosis or insufficiency. Moderate MV annular and leaflet calcification with moderate stenosis. MVA: 1.90 cmsq; Pkv: 2.73 m/sec; Gradients: 30 / 14 mmHG. Trace regurgitation. TV appears structurally normal with mild regurgitation. Normal PV without stenosis, physiologic insufficiency. Normal pericardium. No effusion.
[2025-05-26 04:40] LABS: MEAN PLATELET VOLUME 8.8 FL (7.4-10.4); RED CELL DISTRIBUTION WIDTH 27.1 % (11.5-14.5)
[2025-05-26 05:01] LABS: CREATININE 1.11 MG/DL (0.60-1.10); TOTAL CARBON DIOXIDE 25.1 MMOL/L (24-32); eCRCL 69 ML/MIN; eGFR 66 ML/MIN
[2025-05-26 06:00] VITALS: BP 135/68; PULSE 81; RESP 18; TEMP 97.9; O2SAT 94
[2025-05-26] MEDS: budesonide 0.5mg/2ml UD nebule IH SCH (07:57)
[2025-05-26 08:00] VITALS: BP_SYST 136; BP_SYST 137; BP_SYST 141; BP_DIAS 53; BP_DIAS 62; PULSE 73; PULSE 74; PULSE 75
--- NOTE | 2025-05-26 08:53 | PROGRESS NOTE- Residence ---
Progress Note - Resident Providers to CC Resident Creating Document: YANIRA WALKER RES ~ Antibiotic Timeout Antibiotic Ordered?: Yes Subjective Patient was seen at bedside this morning. I reviewed the colonoscopy findings with him and advised follow up at our GI Clinic in two weeks. Contact information was provided. Objective Vital Signs Date Time Temp Pulse Resp B/P (MAP) Pulse Ox O2 Delivery O2 Flow Rate FiO2 05/26/25 06:00 97.9 81 18 135/68 (90) 94 Room Air 05/25/25 20:23 0.0 05/25/25 20:19 21 General: Awake and Alert, no acute distress. HEENT: Conjunctiva pale Neck: Supple without masses and tenderness. Resp: Diffuse bilateral expiratory wheezing Heart: Regular Rate and rhythm, normal S1 and S2 without murmur, rub or gallop. Abdomen: Soft and non tender no organomegaly Extremities: More than 2 cm longitudinal open/nonhealing wound on right lower extremity just above the ankle Skin: Warm and Dry. Result Diagram: 05/26/25 0423 05/26/25 0423 Coagulation Studies Laboratory Tests Test 05/24/25 16:01 Prothrombin Time 10.9 SECONDS (9.0-12.0) INR International Normalized Ratio 1.1 INR Activated Partial Thromboplast Time 24 SECONDS (22-32) Coagulation Comments Advance Care Planning Advanced Care plannin - 30 Minutes Assessment Assessment Assessment and plan: The patient is a 65-year-old male with severe iron-deficiency anemia. He underwent an EGD on May 24, 2025. Followed by colonoscopy, performed on May 25, 2025 revealed moderate diverticulosis in the sigmoid colon and a large polyp in the transverse colon, which was resected and retrieved. No definite source of bleeding was identified. EGD performed on May 24, 2025: Normal esophagus Normal duodenal bulb and 2nd portion of the duodenum Normal stomach. Biopsied. Recommendations: Resume regular diet Continue current medications Pathology report is pending Colonoscopy May 25, 2025: Moderate diverticulosis in the sigmoid colon. There was no evidence of diverticular bleeding. One large polyp in the transverse colon, removed with a hot snare. Resected and retrieved. The distal rectum and anal verge are normal on retroflexion view Recommendation: High-fiber diet Continue current medications including iron supplementation Await pathology reports Repeat colonoscopy in one year for surveillance Patient is scheduled for outpatient GI appointment in two weeks; contact information provided. We are signing off on this patient, we will follow up as outpatient in two weeks. Yanira Walker Internal Medicine Resident, PGY-3 Date of Service: May 26, 2025 Billing Provider: JUAN PABLO ALMANZA MD,YANIRA, RES May 26, 2025 08:53
[2025-05-26] MEDS: guaiFENesin ER 600mg tablet PO SCH (08:58)
[2025-05-26 09:08] VITALS: PULSE 73; RESP 18; O2SAT 97
[2025-05-26 09:12] VITALS: PULSE 78; RESP 18
[2025-05-26 10:00] VITALS: BP 156/68; PULSE 86; RESP 16; TEMP 98.3; O2SAT 98
[2025-05-26] MEDS ORDERED: ALBU2.5V7 NEB (12:58)
[2025-05-26] MEDS ORDERED: SULF1TAB49 PO (12:58)
[2025-05-26] MEDS ORDERED: BUDE10.2 INH (12:58)
[2025-05-26] MEDS ORDERED: LACT1CAP26 PO ×2 (12:58→17:18)
[2025-05-26] MEDS ORDERED: PRED10TA23 PO (12:58)
[2025-05-26] MEDS ORDERED: FERR-29 PO (12:59)
[2025-05-26] MEDS ORDERED: PANT40TA54 PO (12:59)
[2025-05-26] MEDS ORDERED: FERR324T4 PO (17:18)
--- NOTE | 2025-05-26 18:56 | PATHOLOGY REPORT ---
[facility] [address] [place] [address] SURGICAL PATHOLOGY REPORT CaseNumber: [id number] Surgeon:Chalo Arias M.D. CLINICAL INFORMATION CLINICAL INFORMATION: GI bleed. DIAGNOSIS DIAGNOSIS: COLON, TRANVERSE; POLYPECTOMY - TUBULAR ADENOMA WITHOUT HIGH GRADE DYSPLASIA OR MALIGNANCY. - EXTENDING TO MARGINS. MICROSCOPIC DESCRIPTION MICROSCOPIC DESCRIPTION: Two slides of the transverse colon polypectomy specimen are reviewed. Present is a tubular adenoma which extends to cauterized margins. The tubular adenoma is characterized by branched and forked glands are lined by tall, hyperchromatic cells whose nuclei overlap. There is no high grade dysplasia/carcinoma in situ. (st) GROSS DESCRIPTION GROSS DESCRIPTION: Received in a container of formalin labeled with the patient's name, number, and "transverse colon polyp" are 2 polypoid pieces of pink-gillette tissue 0.6 x 0.3 x 0.3 and 1.4 x 1 x 0.7 cm. The specimens are sectioned. The specimen is entirely submitted as A1-A2. The time at which the sp ecimen was removed was not provided. The time at which the specimen was placed in formalin was not provided. Electronically signed by: Fozia Monzon M.D. 05/26/2025 6:26:00 PM
--- NOTE | 2025-05-26 19:12 | DISCHARGE SUMMARY-Residence ---
Discharge Summary Providers to CC Resident Creating Document: JEANNETTE LEMONS RES ~ Discharge Summary Admission Diagnosis: Severe anemia Hospital Course DATE OF ADMISSION: 05/23/25 DATE OF DISCHARGE: 05/26/25 Chest x-ray 1. No acute intrathoracic process. 2. Cardiomegaly and postoperative changes of the heart. Abdomen pelvis CTA 1. Limited evaluation for gastrointestinal bleeding secondary to lack of intravenous contrast correlate for contrast extravasation of the time of injection. 2. No visualized hemoperitoneum. 3. Significant bladder distention with underlying trabeculation correlate for urinary retention and subsequent cystitis. 4. Mild stool burden. 5. Fat containing left inguinal hernia Echocardiogram Overall LVEF is about 60% Normal LV size and function. Moderate concentric hypertrophy. RV is mildly dilated in size with normal function. RVSP is estimated at 52 mmHg. Trileaflet AV appears mildly sclerotic without stenosis or insufficiency. Moderate MV annular and leaflet calcification with moderate stenosis. MVA: 1.90 cmsq; Pkv: 2.73 m/sec; Gradients: 30 / 14 mmHG. Trace regurgitation. TV appears structurally normal with mild regurgitation. Normal PV without stenosis, physiologic insufficiency. Normal pericardium. No effusion. Chest CTA 1. Mild volume overload and/or CHF with mild interstitial pulmonary edema, small bilateral pleural effusions, mild cardiomegaly, and chest wall edema. 2. Prior median sternotomy and CABG. 3. Mild centrilobular and paraseptal emphysema . 4. Mild splenomegaly. GI bleed scan No scintigraphic evidence of active GI bleeding. EGD performed on May 24, 2025: Normal esophagus Normal duodenal bulb and 2nd portion of the duodenum Normal stomach. Biopsied. Recommendations: Resume regular diet Continue current medications Pathology report is pending Colonoscopy May 25, 2025: Moderate diverticulosis in the sigmoid colon. There was no evidence of diverticular bleeding. One large polyp in the transverse colon, removed with a hot snare. Resected and retrieved. The distal rectum and anal verge are normal on retroflexion view Laboratory Tests Test 05/24/25 21:34 05/25/25 03:51 05/25/25 09:03 05/25/25 14:01 Stool Occult Blood Negative White Blood Count 13.0 X10'3 14.5 X10'3 Red Blood Count 3.19 X10'6 3.54 X10'6 Hemoglobin 7.0 g/dl 8.0 g/dl Hematocrit 22.3 % 25.2 % Mean Corpuscular Volume 69.7 FL 71.3 FL Mean Corpuscular Hemoglobin 21.9 PG 22.5 PG Mean Corpuscular Hemoglobin Concent 31.4 g/dL 31.5 g/dL Red Cell Distribution Width 26.2 % 27.2 % Platelet Count 267 X10'3 268 X10'3 Mean Platelet Volume 8.7 FL 9.1 FL Hematology Comments Sodium Level 142 MMOL/L Potassium Level 4.3 MMOL/L Chloride Level 107 MMOL/L Carbon Dioxide Level 26.6 MMOL/L Anion Gap 8 Blood Urea Nitrogen 22 MG/DL Creatinine 1.25 MG/DL Estimated GFR/1.73 m2 58 ML/MIN BUN/Creatinine Ratio 17.6 Glucose Level 141 MG/DL Calcium Level 8.0 MG/DL Magnesium Level 2.0 MG/DL Albumin 3.0 G/DL Chemistry Comments Lactate Dehydrogenase 186 U/L Test 05/26/25 04:23 White Blood Count 13.3 X10'3 Red Blood Count 3.62 X10'6 Hemoglobin 8.2 g/dl Hematocrit 26.1 % Mean Corpuscular Volume 72.1 FL Mean Corpuscular Hemoglobin 22.6 PG Mean Corpuscular Hemoglobin Concent 31.4 g/dL Red Cell Distribution Width 27.1 % Platelet Count 281 X10'3 Mean Platelet Volume 8.8 FL Hematology Comments Sodium Level 143 MMOL/L Potassium Level 4.2 MMOL/L Chloride Level 109 MMOL/L Carbon Dioxide Level 25.1 MMOL/L Anion Gap 9 Blood Urea Nitrogen 24 MG/DL Creatinine 1.11 MG/DL Estimated GFR/1.73 m2 66 ML/MIN BUN/Creatinine Ratio 21.6 Glucose Level 135 MG/DL Calcium Level 8.0 MG/DL Magnesium Level 2.2 MG/DL Albumin 2.9 G/DL Chemistry Comments Discharge Diagnosis\Comment: 1. Severe microcytic hypochromic anemia due to iron deficiency 2. COPD exacerbation, clinically stable 3. Acute kidney injury most likely from mixed vasomotor nephropathy // post renal obstruction 4. Acute urinary tract infection Complicated by chronic outlet obstruction Operations\Procedures: Upper endoscopy, colonoscopy Consultants: Gastroenterology Complications: None Condition on DC: Stable New Medications: Albuterol Sulfate (Albuterol Sulfate) 2.5 Mg/3 Ml Vial.neb 1 VIAL NEB Q4HPRN PRN for wheezing, #150 ML 0 Refills Albuterol Sulfate (Albuterol Sulfate) 2.5 Mg/3 Ml Vial.neb 1 VIAL NEB Q4HPRN PRN for wheezing, #150 ML 0 Refills Budesonide/Formoterol Fumarate (Symbicort 160-4.5 Mcg Inhaler) 160 Mcg-4.5 Mcg/Actuation Hfa.aer.ad 2 PUFFS INH Q12H for 30 Days, #10.2 GM 0 Refills Budesonide/Formoterol Fumarate (Symbicort 160-4.5 Mcg Inhaler) 160 Mcg-4.5 Mcg/Actuation Hfa.aer.ad 2 PUFFS INH Q12H for 30 Days, #10.2 GM 0 Refills Ferrous Sulfate (Iron) 325 Mg (65 Mg Iron) Tablet 1 TAB PO Q12H for 30 Days, #60 TAB 0 Refills Ferrous Sulfate (Ferrous Sulfate) 324 Mg (65 Mg Iron) Tablet.dr 1 TAB PO Q12H for 30 Days, #60 TAB 0 Refills Lactobacillus Rhamnosus (Culturelle) 10 Billion Cell Capsule 1 CAP PO DAILY for 30 Days, #60 CAP 0 Refills Lactobacillus Rhamnosus (Culturelle) 10 Billion Cell Capsule 1 CAP PO BID for 30 Days, #60 CAP 0 Refills Pantoprazole Sodium (Pantoprazole Sodium) 40 Mg Tablet.dr 40 MG PO DAILY for 30 Days, #30 TAB.SR Pantoprazole Sodium (Pantoprazole Sodium) 40 Mg Tablet.dr 40 MG PO DAILY for 30 Days, #30 TAB.SR Prednisone (Prednisone) 10 Mg Tablet 0 PO DAILY, #42 TAB Take 4 tabs daily x4 days, then 3 daily x4 days 2 daily x4 days 1 daily x4 days 1/2 daily x4 days then STOP Prednisone (Prednisone) 10 Mg Tablet 0 PO DAILY, #42 TAB Take 4 tabs daily x4 days, then 3 daily x4 days 2 daily x4 days 1 daily x4 days 1/2 daily x4 days then STOP Sulfamethoxazole/Trimethoprim (Bactrim Ds Tablet) 800 Mg-160 Mg Tablet 1 EACH PO BID for 7 Days, #14 TAB Sulfamethoxazole/Trimethoprim (Bactrim Ds Tablet) 800 Mg-160 Mg Tablet 1 EACH PO BID for 7 Days, #14 TAB Continued Medications: Amiodarone HCl (Pacerone) 200 Mg Tablet 1 TAB PO DAILY for 30 Days, #30 TAB 0 Refills Atorvastatin Calcium (Atorvastatin Calcium) 20 Mg Tablet 20 MG PO DAILY for 30 Days, #30 TAB Cadexomer Iodine (Iodosorb) 0.9 % Gel..gm. 1 APPLIC TOP DAILY for 30 Days, #40 GM 0 Refills Colchicine (Colchicine) 0.6 Mg Capsule 1 CAP PO DAILY for 30 Days, #30 CAP 0 Refills Duloxetine HCl (Duloxetine HCl) 20 Mg Capsule.dr 1 CAP PO DAILY for 30 Days, #30 CAP 0 Refills Folic Acid* (Folic Acid*) Y Tab 1 MG PO DAILY for 30 Days, #30 TAB Folic Acid* (Folic Acid*) 0.4 Mg Tablet 1 TAB PO DAILY for 30 Days, #30 TAB Gabapentin (Gabapentin) 100 Mg Capsule 1 CAP PO Q8H for 30 Days, #90 CAP 0 Refills Hydroxyzine Hcl* (Atarax*) 25 Mg Tablet 1 TAB PO Q12H for anxiety for 30 Days, #60 TAB Lisinopril (Lisinopril) 10 Mg Tablet 10 MG PO DAILY for 30 Days, #30 TAB Metoprolol/Hydrochlorothiazide 100/50 MG* (Lopressor Hct 100/50 MG*) 100 Mg/50 Mg Tablet 1 TAB PO DAILY, TAB Naloxone HCl (Naloxone HCl) 4 Mg/Actuation [place] Tamsulosin Hcl* (Flomax*) 0.4 Mg Cap.sr.24h 1 CAP PO DAILY for 30 Days, #30 CAP Thiamine Mononitrate (Vitamin B-1) 100 Mg Tablet 100 MG PO, TAB Discharge Summary: History of present illness The patient was admitted with the following HPI: This is a 65-year-old male patient with past medical history of CAD, stroke, CABG, alcohol/tobacco use disorder, hypertension, hyperlipidemia, who was transferred from the [place] [facility] due to low hemoglobin. Patient complains of progressive weakness, tiredness and shortness of breath with exertion for the past 2-3 months. He also complains of occasional black stools but denies hematochezia, hematemesis, dyschezia, fecal urgency, abdominal pain, diarrhea, nausea, vomiting or weight loss. Patient takes aspirin but denies taking any NSAIDs recently. Patient does not have chest pain, fever, nocturnal sweating or productive cough. Hospital course The patient is a 65-year-old male with severe iron-deficiency anemia. He was admitted due to symptomatic anemia, which was initially suspected to be caused by chronic gastrointestinal bleeding due to a history of black stools; however, fecal occult blood tests were negative. He underwent an esophagogastroduodenoscopy (EGD) on May 24, 2025, followed by a colonoscopy on May 25, 2025. The colonoscopy revealed moderate diverticulosis in the sigmoid colon and a large polyp in the transverse colon, which was resected and retrieved. No definitive source of bleeding was identified. The patient also underwent a bleeding scan and a chest and abdomen CTA both of which did not show any bleeding source. He received three units of blood and was started on intravenous iron replacement; his hemoglobin has remained stable for the past 24 hours. During his hospitalization, he experienced an exacerbation of COPD with refractory wheezing despite treatment with albuterol, ipratropium, steroids, ceftriaxone, and azithromycin. The patient is currently a smoker, does not use any home inhalers, and does not have follow-up care with a lead data entry operator. A follow-up with a lead data entry operator has been arranged to conduct pulmonary function tests and to continue LABA/ICS therapy started during this hospitalization. Additionally, the patient reported urinary symptoms due to chronic outlet obstruction, for which he is not self-catheterizing as frequently as he should. A urine culture was positive for MRSA, and the patient will be discharged with Bactrim based on sensitivity results. The patient has shown significant clinical improvement and is stable for discharge. He will have follow-up appointments with gastroenterology, pulmonology, his primary care physician, a income tax return preparer, and the wound care clinic. Discharge physical exam Awake , alert, and oriented x4 HEENT: Atraumatic, normocephalic, EOMI, anicteric sclera ; pale conjunctiva; dry mucous membranes Neck: Trachea midline. Supple, full range of motion, no JVD Cardiac: Regular rhythm, regular rate with no murmurs all over the precordium. Respiratory: Diminished breath sounds bilaterally with diffuse wheezing without tachypnea, rub or rales, Chest wall is symmetric and without deformity. Gastrointestinal: Abdomen symmetric, distended, soft, non-tender, normal bowel sounds x4 quadrant, normoactive, no hepatosplenomegaly Musculoskeletal: No pedal edema Neurological: Mental status exam: alert and consciousness, orientation, memory, speech - Cranial nerve test: Cranial nerves 2-12 intact - Motor system: Normal Nutrition, normal tone, Power 5/5, no involuntary movements - Sensory system: Intact - Reflex testing: Biceps, triceps and knee reflexes 2+ - Cerebellar: Normal Skin: Warm and dry. There is a chronic ulcer of 4x3cm the anterior left ankle with clear borders and no purulent discharge. Discharge medications New Medications: Albuterol Sulfate 2.5 Mg/3 Ml Vial.neb Budesonide/Formoterol Fumarate (Symbicort 160-4.5 Mcg Inhaler) 160 Mcg-4.5 Mcg/Actuation Hfa.aer.ad Ferrous Sulfate (Iron) 325 Mg (65 Mg Iron) Tablet Lactobacillus Rhamnosus (Culturelle) 10 Billion Cell Capsule Pantoprazole Sodium 40 Mg Tablet. Prednisone 10 Mg Tablet Take 4 tabs daily x4 days, then 3 daily x4 days 2 daily x4 days 1 daily x4 days 1/2 daily x4 days then STOP Sulfamethoxazole/Trimethoprim (Bactrim Ds Tablet) 800 Mg-160 Mg Tablet Continued Medications: Amiodarone HCl (Pacerone) 200 Mg Tablet Atorvastatin Calcium 20 Mg Tablet Cadexomer Iodine (Iodosorb) 0.9 % Gel..gm. Colchicine 0.6 Mg Capsule Duloxetine HCl 20 Mg Capsule. Folic Acid* Y Tab Folic Acid* 0.4 Mg Tablet Gabapentin 100 Mg Capsule Hydroxyzine Hcl* (Atarax*) 25 Mg Tablet Lisinopril 10 Mg Tablet Metoprolol/Hydrochlorothiazide 100/50 MG* (Lopressor Hct 100/50 MG*) 100 Mg/50 Mg Tablet Naloxone HCl 4 Mg/Actuation [place] Tamsulosin Hcl* (Flomax*) 0.4 Mg Cap.sr.24h Thiamine Mononitrate (Vitamin B-1) 100 Mg Tablet Discharge instructions Follow-up with primary care physician in one week Follow-up with a income tax return preparer outpatient, ask for a referral from your PCP Follow-up with brand marketing manager Dr. Feldman Follow-up with lead data entry operator Dr. Cat. A consult will be arranged by the outsole caser. Repeat CBC and CMP in 5-7 days Take iron daily for at least six months Take Bactrim for seven days due to UTI Take Symbicort twice a day and albuterol as needed Take prednisone as prescribed Take pantoprazole 40 mg daily Continue home medication Stopped smoking Come back in case of severe shortness for breath, progressive tiredness and weakness, bleeding or any concerning symptoms. Outpatient wound care appointment set for Thursday 05/31 at 12:30 check in time. *Problems/Diagnosis: (1) Iron deficiency anemia Status: Acute (2) COPD exacerbation Status: Acute (3) Urinary tract infection Status: Acute Total Time Spent on D/C: > 30 Minutes Counseling Services Smoking & Tobacco Cessation: 3-10 Minutes Date of Service: May 26, 2025 Billing Provider: MARCELA HINSON MD Problem Qualifiers (1) Iron deficiency anemia: Iron deficiency anemia type: unspecified iron deficiency Qualified Codes: D50.9 - Iron deficiency anemia, unspecified (2) Urinary tract infection: Indwelling urinary catheter type: unspecified Encounter type: initial encounter JEANNETTE LEMONS, RES May 26, 2025 19:12
== END 2025-05-26 14:35 | disposition home or self-care (01) | DRG 811 ==
LOC: ER 15:00 → ED HOLD 17:33 → ORTHO 4S 21:35
PROVIDERS: ADMIT Family Medicine; ATTEND Family Medicine
PROC: 30233N1 Transfusion of Nonautologous Red Blood Cells into Peripheral Vein, Percutaneous Approach (ICD-10-PCS; principal; 2025-05-23)
PROC: B4201ZZ Computerized Tomography (CT Scan) of Abdominal Aorta using Low Osmolar Contrast (ICD-10-PCS; 2025-05-23)
PROC: B4241ZZ Computerized Tomography (CT Scan) of Superior Mesenteric Artery using Low Osmolar Contrast (ICD-10-PCS; 2025-05-23)
PROC: B4281ZZ Computerized Tomography (CT Scan) of Bilateral Renal Arteries using Low Osmolar Contrast (ICD-10-PCS; 2025-05-23)
PROC: B42C1ZZ Computerized Tomography (CT Scan) of Pelvic Arteries using Low Osmolar Contrast (ICD-10-PCS; 2025-05-23)
PROC: B42H1ZZ Computerized Tomography (CT Scan) of Bilateral Lower Extremity Arteries using Low Osmolar Contrast (ICD-10-PCS; 2025-05-23)
PROC: B42H1ZZ Computerized Tomography (CT Scan) of Bilateral Lower Extremity Arteries using Low Osmolar Contrast (ICD-10-PCS; 2025-05-23)
PROC: 0DB68ZX Excision of Stomach, Via Natural or Artificial Opening Endoscopic, Diagnostic (ICD-10-PCS; 2025-05-24)
PROC: CD17YZZ Planar Nuclear Medicine Imaging of Gastrointestinal Tract using Other Radionuclide (ICD-10-PCS; 2025-05-25)
PROC: BW241ZZ Computerized Tomography (CT Scan) of Chest and Abdomen using Low Osmolar Contrast (ICD-10-PCS; 2025-05-25)
PROC: 0DBL8ZZ Excision of Transverse Colon, Via Natural or Artificial Opening Endoscopic (ICD-10-PCS; 2025-05-25)
DX: D50.9 Iron deficiency anemia, unspecified (principal); N17.0 Acute kidney failure with tubular necrosis; I42.9 Cardiomyopathy, unspecified; J44.1 Chronic obstructive pulmonary disease with (acute) exacerbation; N39.0 Urinary tract infection, site not specified; I50.30 Unspecified diastolic (congestive) heart failure; I25.10 Atherosclerotic heart disease of native coronary artery without angina pectoris; I48.91 Unspecified atrial fibrillation; F17.210 Nicotine dependence, cigarettes, uncomplicated; E78.5 Hyperlipidemia, unspecified; H54.40 Blindness, one eye, unspecified eye; H91.91 Unspecified hearing loss, right ear; F10.10 Alcohol abuse, uncomplicated; Y90.9 Presence of alcohol in blood, level not specified; I11.0 Hypertensive heart disease with heart failure; K57.30 Diverticulosis of large intestine without perforation or abscess without bleeding; K63.5 Polyp of colon; N28.89 Other specified disorders of kidney and ureter; B95.62 Methicillin resistant Staphylococcus aureus infection as the cause of diseases classified elsewhere; Z86.73 Personal history of transient ischemic attack (TIA), and cerebral infarction without residual deficits; Z95.1 Presence of aortocoronary bypass graft; I25.2 Old myocardial infarction
CPT/HCPCS: 36415; 36430; 43239; 45385; 71045; 71260; 74174; 78278; 80048; 80053; 80061; 80305; 81001; 82272; 82570; 82607; 82728; 82948; 83010; 83036; 83540; 83550; 83605; 83615; 83690; 83735; 83880; 83935; 84133; 84145; 84153; 84154; 84300; 84443; 84484; 85007; 85008; 85025; 85027; 85610; 85730; 86870; 86885; 86900; 86901; 86902; 86905; 86922; 87077; 87081; 87088; 87186; 87207; 93005; 93306; 94640; 94664; 94760; 96365; 96366; 99291; A4615; A4618; A4620; A4649; A6209; A6212; A6250; A6258; A6449; A7000; A9560; C1758; G0378; J0696; J1100; J1938; J2250; J2470; J2704; J2916; J2919; J3010; J7030; J7040; J7120; P9016; Q9967